=== PATIENT | female | born 1995 | race Two or more races ===

== ENCOUNTER 2019-10-09 10:46 | Emergency (ER) | payer SELFPAY ==
[~2019-10-09] VITALS: Ht 162.6 cm; Wt 120.7 kg
[2019-10-09 10:51] VITALS: BP 147/96
== END 2019-10-09 11:12 | disposition home or self-care (01) ==
LOC: ER 10:46
DX: I10 Essential (primary) hypertension (principal); F41.9 Anxiety disorder, unspecified

== ENCOUNTER 2021-06-11 08:18 | Emergency (ER) | payer MEDICAID, OTHER ==
[~2021-06-11] VITALS: Ht 160 cm; Wt 107.0 kg
[2021-06-11 08:19] VITALS: BP 125/60
== END 2021-06-11 09:44 | disposition home or self-care (01) ==
LOC: ER 08:18
DX: S30.0XXA Contusion of lower back and pelvis, initial encounter (principal); W18.39XA Other fall on same level, initial encounter; Y93.89 Activity, other specified; Y92.89 Other specified places as the place of occurrence of the external cause; Y99.8 Other external cause status
CPT/HCPCS: 72100; 81025

== ENCOUNTER 2021-07-28 11:22 | Emergency (ER) | payer MEDICAID ==
[~2021-07-28] VITALS: Ht 160 cm; Wt 111.6 kg
[2021-07-28 14:16] LABS: Hemoglobin 8.1 g/dL (12.2-16.2); Monocytes # (auto) 0.4 10 ^3/uL (0-1.3); Nucleated Red Blood Cells % 0.1 %; White Blood Cell 8.1 10^3/uL (4.4-10.8)
[2021-07-28 14:18] LABS: Basophils # (auto) 0.1 10 ^3/uL (0-0.2); Basophils % (auto) 0.7 % (0.0-2.0); Eosinophils # (auto) 0.2 10 ^3/uL (0-0.8); Hematocrit 26.3 % (36.0-46.0); Lymphocytes # (auto) 1.7 10 ^3/uL (0.4-5.4); Lymphocytes % (auto) 21.2 % (10.0-50.0); Mean Corpuscular Hemoglobin 19.2 pg (28.0-32.0); Mean Corpuscular Hgb Conc. 30.7 g/dL (32.0-36.0); Mean Corpuscular Volume 62.6 fL (80.0-100.0); Monocytes % (auto) 5.5 % (0.0-12.0); Neutrophils # (auto) 5.7 10 ^3/uL (1.6-8.6); Neutrophils % (auto) 70.6 % (37.0-80.0); Red Cell Distribution Width 18.1 % (11.8-14.3)
[2021-07-28 14:33] LABS: Albumin 3.6 g/dL (3.4-5.0); BUN/Creatinine Ratio 10.8; Calcium 9.2 mg/dL (8.5-10.1); Potassium 3.9 mmol/L (3.5-5.1)
[2021-07-28 14:35] LABS: Bilirubin, Total 0.5 mg/dL (0.2-1.0); Total Protein 8.5 g/dL (6.4-8.2)
[2021-07-28] MEDS ORDERED: FERR1TAB36 PO (15:01)
[2021-07-28 16:22] VITALS: BP 116/74
== END 2021-07-28 16:25 | disposition home or self-care (01) ==
LOC: ER 11:22
DX: R07.89 Other chest pain (principal); D64.9 Anemia, unspecified
CPT/HCPCS: 36415; 71046; 80053; 81025; 83880; 84484; 85025; 93005

== ENCOUNTER 2023-07-28 22:40 | Emergency (ER) | payer SELFPAY ==
[~2023-07-28] VITALS: Ht 162.6 cm; Wt 107.0 kg
[~2023-07-28 22:40] MED LIST: FERR1TAB36 PO
[2023-07-28 23:35] LABS: Urine Bacteria None Seen /hpf (None Seen)
[2023-07-29 00:03] LABS: Urine Blood Negative /uL (Negative); Urine Clarity Clear (Clear); Urine Color Light-Yellow (Yellow); Urine Mucus FEW (None Seen); Urine Protein, UAD Negative (Negative); Urine Urobilinogen Normal (Negative); Urine WBC 14 /hpf (0 - 5)
[2023-07-29 00:03] LABS: Basophils # (auto) 0.1 10 ^3/uL (0-0.2); Hemoglobin 11.3 g/dL (12.2-16.2); Lymphocytes # (auto) 2.8 10 ^3/uL (0.4-5.4); White Blood Cell 11.1 10^3/uL (4.4-10.8)
[2023-07-29 00:04] LABS: Basophils % (auto) 0.9 % (0.0-2.0); Eosinophils # (auto) 0.7 10 ^3/uL (0-0.8); Eosinophils % (auto) 6.6 % (0.0-7.0); Hematocrit 36.1 % (36.0-46.0); Mean Corpuscular Hemoglobin 22.7 pg (28.0-32.0); Mean Corpuscular Hgb Conc. 31.2 g/dL (32.0-36.0); Mean Corpuscular Volume 72.7 fL (80.0-100.0); Monocytes # (auto) 0.6 10 ^3/uL (0-1.3); Monocytes % (auto) 5.6 % (0.0-12.0); Neutrophils # (auto) 6.8 10 ^3/uL (1.6-8.6); Neutrophils % (auto) 61.9 % (37.0-80.0); Red Blood Cells 4.97 10^6/uL (4.0-5.20); Red Cell Distribution Width 17.4 % (11.8-14.3)
[2023-07-29 00:18] LABS: Alanine Aminotransferase 31 U/L (7-40); Albumin 4.4 g/dL (3.2-4.8); Alkaline Phosphatase 86 U/L (46-116); Anion Gap 9 (5-15); Aspartate Aminotransferase 22 U/L (13-40); BUN/Creatinine Ratio 10.4 (10.0-20.0); Blood Urea Nitrogen 7 mg/dL (9-23); Calcium 10.2 mg/dL (8.7-10.4); Carbon Dioxide 27 mmol/L (20-30); Chloride 105 mmol/L (98-107); Glucose 103 mg/dL (74-106); Lipase 31 U/L (12-53); Potassium 3.7 mmol/L (3.5-5.1); Sodium 141 mmol/L (136-145)
[2023-07-29 00:19] LABS: Bilirubin, Total 0.3 mg/dL (0.2-1.0); Total Protein 8.1 g/dL (5.7-8.2)
[2023-07-29 01:54] VITALS: TEMP 98.3
[2023-07-29] MEDS ORDERED: NITR-52 PO (02:14)
[2023-07-29 03:00] VITALS: BP 134/81; PULSE 95; RESP 17; O2SAT 98
== END 2023-07-29 03:05 | disposition home or self-care (01) ==
LOC: ER 22:40
DX: N39.0 Urinary tract infection, site not specified (principal); D64.9 Anemia, unspecified; R10.11 Right upper quadrant pain
CPT/HCPCS: 36415; 76705; 80053; 81001; 83605; 83690; 85025

== ENCOUNTER 2024-02-02 18:57 | Emergency (ER) | payer MEDICAID ==
[~2024-02-02] VITALS: Ht 160 cm; Wt 124.3 kg
[~2024-02-02 18:57] MED LIST changes: +NITR-52 PO
[2024-02-02] MEDS ORDERED: ACET500T58 PO (21:48)
[2024-02-02] MEDS ORDERED: PRED20TA2 PO (21:48)
[2024-02-02] MEDS ORDERED: AZIT-43 PO (21:48)
--- NOTE | 2024-02-02 21:48 | ED.PDOC ---
SOB-HPI HPI Comments 28-year-old female presents to ER with complaints of cough x2 days. Patient reports that she has been experiencing productive cough with yellow phlegm and on/off frontal headache x two days. States she has been around her grandmother who has recently diagnosed with pneumonia. Patient also reports mild "chest tightness" to substernal region of chest that is present with coughing only, denying any tightness/pain at rest. Denies use of medications for current symptoms. Patient presents to ER ambulatory on arrival, with steady gait, in no distress. Denies fever, body aches, chills, shortness of breath, hemoptysis, sore throat, nausea/vomiting or any further symptoms/complaints Chief Complaint: Cough Time Seen by MD: 18:59 Primary Care Provider: NONE Reviewed notes: Nurses Notes, Medications, Allergies Information Source: Patient Mode of Arrival: Ambulatory Past Medical History PAST MEDICAL HISTORY: Denies Surgical History: Denies all surgeries AUTOMATION TECH History: No Pertinent AUTOMATION TECH History LMP 01-30-24 Family History Family History: Reviewed,noncontributory to illness Social History Smoker: Non-Smoker Alcohol: Occasionally Drugs: Denies Drug Use Lives In: Home Constitutional: denies: chills, diaphoresis, fatigue, fever, malaise, sweats, weakness, others EENTM: denies: blurred vision, double vision, ear bleeding, ear discharge, ear drainage, ear pain, ear ringing, eye pain, eye redness, hearing loss, mouth pain, mouth swelling, nasal discharge, nose bleeding, nose congestion, nose pain, photophobia, tearing, throat pain, throat swelling, voice changes, others Respiratory: reports: others (As stated in HPI) Cardiovascular: denies: chest pain, dizzy spells, diaphoresis, Dyspnea on exertion, edema, irregular heart beat, left arm pain, lightheadedness, palpi tations, PND, syncope, others Gastrointestinal: denies: abdomen distended, abdominal pain, blood streaked bowels, constipated, diarrhea, dysphagia, difficulty swallowing, hematemesis, melena, nausea, poor appetite, poor fluid intake, rectal bleeding, rectal pain, vomiting, others Genitourinary: denies: abnormal vagina bleeding, burning, dyspareunia, dysuria, flank pain, frequency, hematuria, incontinence, pain, , vagina discharge, urgency, others Neurological: denies: dizziness, fainting, headache, left sided numbness, left sided weakness, numbness, paresthesia, pre-existing deficit, right sided numbness, right sided weakness, seizure, speech problems, tingling, tremors, weakness, others Musculoskeletal: denies: back pain, gout, joint pain, joint swelling, muscle pain, muscle stiffness, neck pain, others Integumetry: denies: bruises, change in color, change in hair/nails, dryness, laceration, lesions, lumps, rash, wounds, others Allergic/Immunocompromised: denies: Difficulty Healing, Frequent Infections, Hives, Itching, others Hematologic/Lymphatic: denies: anemia, blood clots, easy bleeding, easy bru ising, swollen glands, others Endocrine: denies: excessive hunger, excessive sweating, excessive thirst, e xcessive urination, flushing, intolerance to cold, intolerance to heat, unexplained weight gain, unexplained weight loss, others Psychiatric: denies: anxiety, bipolar disorder, depression, hopeless, panic disorder, schizophrenia, sleepless, suicidal, others Physical Exam General Appearance: No Apparent Distress, Obese HEENT: Normal ENT Inspection, PERRL/EOMI, Pharynx Normal, TMs Normal Neck: Full Range of Motion, Non-Tender, Normal Respiratory: Chest Non-Tender, Lungs Clear, No Accessory Muscle Use, No Respiratory Distress, Normal Breath Sounds Cardiovascular: No Murmur, No Gallop, Regular Rate/Rhythm Breast Exam: Deferred Gastrointestinal: NOT DONE Genitalia: Deferred Pelvic: Deferred Rectal: Deferred Extremities: Normal capillary refill, Normal range of motion Neurologic: Alert, fur sorter II-XII nml as Tested, No Motor Deficits, Normal Affect, Normal Mood, No Sensory Deficits Cerebellar Function: Normal Reflexes: Normal Skin: Dry, Normal Color, Warm Peripheral Pulses: 2+ Radial (R), 2+ Radial (L), 2+ Brachial (R), 2+ Brachial (L) Lymphatic: No Adenopathy Was a procedure done? Was a procedure done?: No Sedation Sedation?: No Differential Dx Differential Diagnosis: Pneumonia, Pulmonary Embolism, Respiratory Distress X-Ray, Labs, Meds, VS Vital Signs Date Time Temp Pulse Resp B/P (MAP) Pulse Ox O2 Delivery O2 Flow Rate FiO2 02/02/24 22:04 99 Room Air 0 02/02/24 21:57 97 14 127/77 (94) 97 02/02/24 19:06 97.6 114 20 149/93 (111) 99 02/02/24 19:02 20 99 Room Air* 0 21 PATIENT: JEMIMA NJ ACCT: [id number] UNIT: [id number] : 1995 LOC: ER ROOM / BED: / AGE / SEX: 28 / F ADM STATUS: REG ER SERVICE 48 ORDERING PHYSICIAN: DEO MONSON PROCEDURE(s): CXR2 - CHEST TWO VIEWS ROUTINE REASON: cough ORDER NUMBER(s): [id number], ACCESSION NUMBER(s): [id number] CHEST RADIOGRAPH Indication: cough Technique: Frontal and lateral view of the chest was obtained Comparison: CHEST TWO VIEWS ROUTINE on DOS: 07/28/21, CXR2 on DOS: 07/28/21 FINDINGS: Lines and Tubes: None Lungs: Clear Pleura: No effusion. No pneumothorax. Cardiomediastinal contours: Unremarkable Bones: Unremarkable IMPRESSION: No evidence of acute disease. ATED BY: KYLE TIWARI DO DICTATED DATE/TIME: 02/02/242222 SIGNED BY: KYLE TIWARI DO SIGNED DATE/TIME: 02/02/242222 CC: waiver sign Chest x-ray reviewed Rocephin 1 g IM ordered Solu-Medrol 125 mg IM ordered Advised to drink plenty of fluids Patient in no distress during ER visit/prior to discharge Advised to follow up with PCP in 1-2 days Patient verbalized understanding and agreeable with current plan of care Advised to return to ER immediately if symptoms worsen Images Reviewed?: Images reviewed and evaluated by me Time of 1ST Reevaluation: 21:20 Reevaluation 1ST: N/A Patient Education/Counseling: Diagnosis, Treatment, Prognosis, Need For Follow Up Family Education/Counseling: No Family Present Departure 1 Departure Time of Disposition: 21:42 Impression: Primary Impression: Upper respiratory infection Qualified Codes: J06.9 - Acute upper respiratory infection, unspecified Additional Impressions: Bronchospasm Morbid obesity with BMI of 45.0-49.9, adult Disposition: 01 HOME / SELF CARE / HOMELESS Condition: Stable e-Prescriptions Acetaminophen (Acetaminophen) 500 Mg Tab 500 MG PO Q4HPRN, #30 TAB 0 Refills Prov: DEO MONSON 02/02/24 Prednisone (Prednisone) 20 Mg Tab 20 MG PO BID for 5 Days, #10 TAB 0 Refills Prov: DEO MONSON 02/02/24 Azithromycin (Azithromycin) 250 Mg Tab 250 MG PO DAILY MDD 500 for 5 Days, #6 TAB 0 Refills 2 TABLETS ORALLY ON DAY ONE, THEN 1 TABLET ORALLY DAILY FOR 4 DAYS Prov: DEO MONSON 02/02/24 Discharged With: Self Critical Care Note Critical Care Time?: No Stability Stability form required: No Heart Score Heart Score: Heart Score Response (Comments) Value History N/A 0 EKG N/A 0 Age N/A 0 Risk Factors N/A 0 Troponin N/A 0 Total 0 DEO MONSON Feb 02, 2024 21:48
[2024-02-02 21:57] VITALS: BP 127/77; PULSE 97; RESP 14
[2024-02-02 22:04] VITALS: O2SAT 99
--- NOTE | 2024-02-02 22:26 | DVH ---
CHEST RADIOGRAPH Indication: cough Technique: Frontal and lateral view of the chest was obtained Comparison: CHEST TWO VIEWS ROUTINE on DOS: 07/28/21, CXR2 on DOS: 07/28/21 FINDINGS: Lines and Tubes: None Lungs: Clear Pleura: No effusion. No pneumothorax. Cardiomediastinal contours: Unremarkable Bones: Unremarkable IMPRESSION: No evidence of acute disease.
[2024-02-02] MEDS: methylPREDNISolone SOD SUCC 125 MG/2 ML VL IM ONE (22:35)
[2024-02-02] MEDS: cefTRIAXone SOD 1,000 MG VL IM ONE (22:36)
== END 2024-02-02 23:05 | disposition home or self-care (01) ==
LOC: ER 18:57
DX: J06.9 Acute upper respiratory infection, unspecified (principal); J98.01 Acute bronchospasm; E66.01 Morbid (severe) obesity due to excess calories; Z68.42 Body mass index [BMI] 45.0-49.9, adult
CPT/HCPCS: 71046; 96372; 99283; J0696; J2919

== ENCOUNTER 2024-07-15 09:59 | Emergency (ER) | payer MEDICAID ==
[~2024-07-15] VITALS: Ht 160 cm; Wt 127.0 kg
[~2024-07-15 09:59] MED LIST changes: +ACET500T58 PO; +AZIT-43 PO; +PRED20TA2 PO
--- NOTE | 2024-07-15 10:58 | ED.PDOC ---
SOB-HPI HPI Comments 28y F who presents to the ED for chief complaint of cough. Pt states she has been having cough for the past 3 weeks. Pt states she has been exacerbated cough in the PM for the past few days. Pt has history of bronchitis. Pt otherwise denies any other symptoms. Chief Complaint: Cough Time Seen by MD: 10:56 Primary Care Provider: NONE Reviewed notes: Medications, Allergies Mode of Arrival: Ambulatory Brought in by: self Past Medical History PAST MEDICAL HISTORY: Denies Surgical History: Denies all surgeries PATIENT COMPANION History: No Pertinent PATIENT COMPANION History Family History Family History: Reviewed,noncontributory to illness Social History Smoker: Non-Smoker Alcohol: Occasionally Drugs: Denies Drug Use Lives In: Home Constitutional: denies: chills, diaphoresis, fatigue, fever, malaise, sweats, weakness, others EENTM: denies: blurred vision, double vision, ear bleeding, ear discharge, ear drainage, ear pain, ear ringing, eye pain, eye redness, hearing loss, mouth pain , mouth swelling, nasal discharge, nose bleeding, nose congestion, nose pain, photophobia, tearing, throat pain, throat swelling, voice changes, others Respiratory: reports: cough; denies: hemoptysis, orthopnea, SOB at rest, shortness of breath, SOB with excertion, stridor, wheezing, others Cardiovascular: denies: chest pain, dizzy spells, diaphoresis, Dyspnea on exertion, edema, irregular heart beat, left arm pain, lightheadedness, palpitations, PND, syncope, others Gastrointestinal: denies: abdomen distended, abdominal pain, blood streaked bowels, constipated, diarrhea, dysphagia, difficulty swallowing, hematemesis, melena, nausea, poor appetite, poor fluid intake, rectal bleeding, rectal pain, vomiting, others Genitourinary: denies: abnormal vagina bleeding, burning, dyspareunia, dysuria, flank pain, frequency, hematuria, incontinence, pain, , vagina discharge, urgency, others Neurological: denies: dizziness, fainting, headache, left sided numbness, left sided weakness, numbness, paresthesia, pre-existing deficit, right sided numbness, right sided weakness, seizure, speech problems, tingling, tremors, weakness, others Musculoskeletal: denies: back pain, gout, joint pain, joint swelling, muscle pain, muscle stiffness, neck pain, others Integumetry: denies: bruises, change in color, change in hair/nails, dryness, laceration, lesions, lumps, rash, wounds, others Allergic/Immunocompromised: denies: Difficulty Healing, Frequent Infections, Hives, Itching, others Hematologic/Lymphatic: denies: anemia, blood clots, easy bleeding, easy bruising, swollen glands, others Endocrine: denies: excessive hunger, excessive sweating, excessive thirst, excessive urination, flushing, intolerance to cold, intolerance to heat, unexplained weight gain, unexplained weight loss, others Psychiatric: denies: anxiety, bipolar disorder, depression, hopeless, panic disorder, schizophrenia, sleepless, suicidal, others All Other Systems: Reviewed and Negative Physical Exam General Appearance: No Apparent Distress, Normal HEENT: Normal ENT Inspection, Pharynx Normal, TMs Normal Neck: Full Range of Motion, Non-Tender, Normal, Normal Inspection Respiratory: Chest Non-Tender, Lungs Clear, No Accessory Muscle Use, No Respiratory Distress, Normal Breath Sounds Cardiovascular: No Edema, No JVD, No Murmur, No Gallop, Normal Peripheral Pulses, Regular Rate/Rhythm Breast Exam: Deferred Gastrointestinal: No Organomegaly, Non Tender, No Pulsatile Mass, Normal Bowel Sounds, Soft Genitalia: Deferred Pelvic: Deferred Rectal: Deferred Extremities: No calf tenderness, Normal capillary refill, Normal inspection, Normal range of motion, Non-tender, No pedal edema Musculoskeletal : Apperance: Normal Neurologic: Alert, client services representative II-XII nml as Tested, No Motor Deficits, Normal Affect, Normal Mood, No Sensory Deficits Cerebellar Function: Normal Reflexes: Normal Skin: Dry, Normal Color, Warm Lymphatic: No Adenopathy Was a procedure done? Was a procedure done?: No Differential Dx Differential Diagnosis: Anxiety, Asthma, Bronchitis, CHF, COPD, Panic Attack, Pneumonia, Pneumothorax, Pharyngitis, URI Comments URI X-Ray, Labs, Meds, VS Vital Signs Date Time Temp Pulse Resp B/P (MAP) Pulse Ox O2 Delivery O2 Flow Rate FiO2 07/15/24 10:12 20 97 Room Air* 0 21 07/15/24 10:12 98.0 90 20 123/70 (87) 97 98.0 Time of 1ST Reevaluation: 11:30 Reevaluation 1ST: Unchanged Patient Education/Counseling: Diagnosis, Treatment, Prognosis, Need For Follow Up Family Education/Counseling: No Family Present Additional Information Previous visits reviewed: The following tests were ordered, and results were reviewed by me: chest x-ray Additional Information was gathered from interviewing the following independent historians: none I reviewed and agreed with the following test results read by other providers: radiologist I discussed treatment and results with medical personnel and: patient Comprehensive systems review obtained and negative except for what is stated in the HPI. Departure 1 Departure Time of Disposition: 12:12 Impression: Primary Impression: Bronchitis Disposition: HOME / SELF CARE / HOMELESS Condition: Good e-Prescriptions Benzonatate (Benzonatate) 200 Mg Cap 1 CAP PO TID, #30 CAP Prov: MARTHA GALE MD 07/15/24 Albuterol Sulfate (Proair Respiclick) 108 Mcg/Act Aer 108 MCG IN Q4HP PRN, #1 AER Prov: MARTHA GALE MD 07/15/24 Discharged With: Self Critical Care Note Critical Care Time?: No Stability Stability form required: No Heart Score Heart Score: Heart Score Response (Comments) Value History N/A 0 EKG N/A 0 Age N/A 0 Risk Factors N/A 0 Troponin N/A 0 Total 0 I personally scribed for MARTHA GALE MD ([email or web address] on 07/15/24 at 10:58. Electronically submitted by Elle Vaughan ([email or web address]). MARTHA GALE MD July 15, 2024 10:58
--- NOTE | 2024-07-15 12:05 | DVH ---
CHEST RADIOGRAPH Indication: COUGH Technique: Single frontal view of the chest was obtained COMPARISON: None FINDINGS: Lines and Tubes: None Lungs: Clear Pleura: No effusion. No pneumothorax. Cardiomediastinal contours: Unremarkable Bones: Unremarkable IMPRESSION: 1. No acute disease.
[2024-07-15] MEDS ORDERED: BENZ200C64 PO (12:12)
[2024-07-15] MEDS ORDERED: ALBU1AER4 IN (12:12)
[2024-07-15 12:16] VITALS: BP 104/48; PULSE 100; RESP 20; TEMP 98; O2SAT 96
== END 2024-07-15 12:23 | disposition home or self-care (01) ==
LOC: ER 09:59
DX: J40 Bronchitis, not specified as acute or chronic (principal); F10.90 Alcohol use, unspecified, uncomplicated; Y90.9 Presence of alcohol in blood, level not specified
CPT/HCPCS: 71045

== ENCOUNTER 2024-10-17 15:50 | Emergency (ER) | payer MEDICAID ==
[~2024-10-17] VITALS: Ht 160 cm; Wt 129.6 kg
[~2024-10-17 15:50] MED LIST changes: +ALBU1AER4 IN; +BENZ200C64 PO
[2024-10-17 15:52] VITALS: BP 137/70; RESP 18; TEMP 97.5; O2SAT 99
[2024-10-17 15:55] VITALS: PULSE 97
--- NOTE | 2024-10-17 16:29 | ED.PDOC ---
HPI Comments This is a 29 year old female presenting to the ED with chief complaint of chest pain. Patient reports that she has been experiencing left sided chest pain since yesterday morning, feeling like a sharp sensation. Patient relays that she feels worsening pain with movement and she feels as if she strained the muscle in her chest when sleeping last night due to tossing/turning all night. Patient denies any SOB, dizziness, abdominal pain, headache, N/V, numbness, or weakness. Chief Complaint: Chest Pain Time Seen by MD: 16:27 Primary Care Provider: NONE Reviewed Notes: Nurses Notes, Medications, Allergies Allergies: Coded Allergies: NO KNOWN ALLERGIES (Unverified , 10/09/19) Home Meds Active Scripts Benzonatate (Benzonatate) 200 Mg Cap, 1 CAP PO TID, #30 CAP Prov:MARTHA GALE MD 07/15/24 Albuterol Sulfate (Proair Respiclick) 108 Mcg/Act Aer, 108 MCG IN Q4HP PRN, #1 AER Prov:MARTHA GALE MD 07/15/24 Acetaminophen (Acetaminophen) 500 Mg Tab, 500 MG PO Q4HPRN, #30 TAB 0 Refills Prov:DEO MONSON 02/02/24 Prednisone (Prednisone) 20 Mg Tab, 20 MG PO BID for 5 Days, #10 TAB 0 Refills Prov:DEO MONSON 02/02/24 Azithromycin (Azithromycin) 250 Mg Tab, 250 MG PO DAILY MDD 500 for 5 Days, #6 TAB 0 Refills 2 TABLETS ORALLY ON DAY ONE, THEN 1 TABLET ORALLY DAILY FOR 4 DAYS Prov:DEO MONSON 02/02/24 Nitrofurantoin (Nitrofurantoin) 100 Mg Cap, 1 CAP PO QID for 5 Days, #20 CAP Prov:EDUARD ESQUIVEL PAC 07/29/23 Ferrous Sulfate (Iron (Ferrous Sulfate)) 50 Mg Tab, 50 MG PO QDAC for 20 Days, #20 TAB Prov:CHRISTEL VOSS MD 07/28/21 Information Source: Patient Mode of Arrival: Ambulatory Severity: Moderate Timing: Hours Duration: Since onset Prehospital treatment: None Location: Chest (L) Radiation: No Radiation Quality: Sharp Onset: At Rest Cardiac Risk Factors: Family History PE Risk Factors: None History of: None Past Medical History PAST MEDICAL HISTORY: Anemia Surgical History: Denies all surgeries LICENSED SALES PRODUCER History: No Pertinent LICENSED SALES PRODUCER History Family History Family History: Reviewed,noncontributory to illness, Family hx of heart otis, Family hx of HTN Social History Smoker: Non-Smoker Alcohol: Occasionally Drugs: Marijuana Lives In: Home Constitutional: denies: chills, diaphoresis, fatigue, fever, malaise, sweats, weakness, others EENTM: denies: blurred vision, double vision, ear bleeding, ear discharge, ear drainage, ear pain, ear ringing, eye pain, eye redness, hearing loss, mouth pain, mouth swelling, nasal discharge, nose bleeding, nose congestion, nose pain, photophobia, tearing, throat pain, throat swelling, voice changes, others Respiratory: denies: cough, hemoptysis, orthopnea, SOB at rest, shortness of breath, SOB with excertion, stridor, wheezing, others Cardiovascular: reports: chest pain; denies: dizzy spells, diaphoresis, Dyspnea on exertion, edema, irregular heart beat, left arm pain, lightheadedness, palpitations, PND, syncope, others Gastrointestinal: denies: abdomen distended, abdominal pain, blood streaked bowels, constipated, diarrhea, dysphagia, difficulty swallowing, hematemesis, melena, nausea, poor appetite, poor fluid intake, rectal bleeding, rectal pain, vomiting, others Genitourinary: denies: abnormal vagina bleeding, burning, dyspareunia, dysuria, flank pain, frequency, hematuria, incontinence, pain, , vagina discharge, urgency, others Neurological: denies: dizziness, fainting, headache, left sided numbness, left sided weakness, numbness, paresthesia, pre-existing deficit, right sided numbness, right sided weakness, seizure, speech problems, tingling, tremors, weakness, others Musculoskeletal: denies: back pain, gout, joint pain, joint swelling, muscle pain, muscle stiffness, neck pain, others Integumetry: denies: bruises, change in color, change in hair/nails, dryness, laceration, lesions, lumps, rash, wounds, others Allergic/Immunocompromised: denies: Difficulty Healing, Frequent Infections, Hives, Itching, others Hematologic/Lymphatic: denies: anemia, blood clots, easy bleeding, easy bruising, swollen glands, others Endocrine: denies: excessive hunger, excessive sweating, excessive thirst, excessive urination, flushing, intolerance to cold, intolerance to heat, unexplained weight gain, unexplained weight loss, others Psychiatric: denies: anxiety, bipolar disorder, depression, hopeless, panic disorder, schizophrenia, sleepless, suicidal, others All Other Systems: Reviewed and Negative Physical Exam General Appearance: No Apparent Distress HEENT: Normal ENT Inspection, Pharynx Normal, TMs Normal Neck: Full Range of Motion, Non-Tender, Normal, Normal Inspection Respiratory: Lungs Clear, No Accessory Muscle Use, No Respiratory Distress, Normal Breath Sounds, Other (Tenderness to the anterior chest region) Cardiovascular: No Edema, No JVD, No Murmur, No Gallop, Normal Peripheral Pulses, Regular Rate/Rhythm Breast Exam: Deferred Gastrointestinal: No Organomegaly, Non Tender, No Pulsatile Mass, Normal Bowel Sounds, Soft Genitalia: Deferred Pelvic: Deferred Rectal: Deferred Extremities: No calf tenderness, Normal capillary refill, Normal inspection, Normal range of motion, Non-tender, No pedal edema Musculoskeletal : Apperance: Normal Neurologic: Alert, painter touch up II-XII nml as Tested, No Motor Deficits, Normal Affect, Normal Mood, No Sensory Deficits Cerebellar Function: Normal Reflexes: Normal Skin: Dry, Normal Color, Warm Lymphatic: No Adenopathy Was a procedure done? Was a procedure done?: No CP Differential Dx Differential Diagnosis: Angina, [place], Pulmonary Embolus Differential Diagnosis: CHF Differential Diagnosis: Pericarditis X-Ray, Labs, Meds, VS Vital Signs Date Time Temp Pulse Resp B/P (MAP) Pulse Ox O2 Delivery O2 Flow Rate FiO2 10/17/24 15:55 97 10/17/24 15:52 97.5 97 18 137/70 99 97.5 Lab Test 10/17/24 16:49 10/17/24 16:01 Range/Units Troponin I High Sensitivity Pending < 3 L </=34 ng/L White Blood Count 9.7 4.4-10.8 10^3/uL Red Blood Count 5.28 H 4.0-5.20 10^6/uL Hemoglobin 13.0 12.2-16.2 g/dL Hematocrit 40.1 36.0-46.0 % Mean Corpuscular Volume 75.8 L 80.0-100.0 fL Mean Corpuscular Hemoglobin 24.7 L 28.0-32.0 pg Mean Corpuscular Hemoglobin Concent 32.5 32.0-36.0 g/dL Red Cell Distribution Width 16.0 H 11.8-14.3 % Platelet Count 257 140-450 10^3/uL Mean Platelet Volume 9.1 6.9-10.8 fL Neutrophils (%) (Auto) 56.8 37.0-80.0 % Lymphocytes (%) (Auto) 27.2 10.0-50.0 % Monocytes (%) (Auto) 6.7 0.0-12.0 % Eosinophils (%) (Auto) 8.6 H 0.0-7.0 % Basophils (%) (Auto) 0.7 0.0-2.0 % Neutrophils # (Auto) 5.5 1.6-8.6 10 ^3/uL Lymphocytes # (Auto) 2.6 0.4-5.4 10 ^3/uL Monocytes # (Auto) 0.7 0-1.3 10 ^3/uL Eosinophils # (Auto) 0.8 0-0.8 10 ^3/uL Basophils # (Auto) 0.1 0-0.2 10 ^3/uL Nucleated Red Blood Cells 0.1 % Sodium Level 139 136-145 mmol/L Potassium Level 3.7 3.5-5.1 mmol/L Chloride Level 104 98-107 mmol/L Carbon Dioxide Level 26 20-31 mmol/L Anion Gap 9 5-15 Blood Urea Nitrogen 9 9-23 mg/dL Creatinine 0.65 0.550-1.02 mg/dL Glomerular Filtration Rate Calc 121 >90 mL/min BUN/Creatinine Ratio 13.8 10.0-20.0 Serum Glucose Pending Calcium Level 9.4 8.7-10.4 mg/dL Chest XR indicates: No acute cardiopulmonary disease. The patient's CBC is within normal limits The chemistry panel is within normal limits. The patient did have some tenderness to palpation on her chest so at this time we are discharging the patient with a diagnosis of musculoskeletal chest pain The patient will return to the emergency department's the condition worsens The patient understands and agrees with the management. The patient is told to take ibuprofen for the pain Images Reviewed?: Images reviewed and evaluated by me Time of 1ST Reevaluation: 17:10 Reevaluation 1ST: Improved Patient Education/Counseling: Diagnosis, Treatment, Prognosis, Need For Follow Up Family Education/Counseling: No Family Present SEPSIS Sepsis Screen Date sepsis recognized/suspect: Oct 17, 2024 Time Sepsis recognized/suspect: 1552 Recent Procedure: No On Antibiotic Therapy: No Respiratory Rate >20: No Heart Rate >90: Yes Temp<36 C (96.8 F) or >38.3 C: No SBP <90 or MAP <65 mmHG: No New Acute Mental Status Change: No Is the patient on CPAP, BIPAP,: No Physician Orders Electrocardigram (10/17/24 15:58) Troponin-I Hs (10/17/24 16:58) Troponin-I Hs (10/17/24 18:58) Electrocardigram (10/17/24 16:58) Electrocardigram (10/17/24 18:58) Chest Two Views Routine (10/17/24 16:23) Basic Metabolic Panel (10/17/24 16:23) Vital Signs Date Time Temp Pulse Resp B/P (MAP) Pulse Ox O2 Delivery O2 Flow Rate FiO2 10/17/24 15:55 97 10/17/24 15:52 97.5 97 18 137/70 99 97.5 Laboratory Tests Test 10/17/24 16:01 White Blood Count 9.7 10^3/uL (4.4-10.8) Departure 1 Departure Time of Disposition: 17:10 Impression: Primary Impression: Costochondritis Disposition: 01 HOME / SELF CARE / HOMELESS Condition: Fair Discharged With: Self Critical Care Note Critical Care Time?: No Stability Stability form required: No Heart Score Heart Score: Heart Score Response (Comments) Value History Slightly Suspicious 0 EKG Normal 0 Age <45 0 Risk Factors No known risk factors 0 Troponin Normal limit 0 Total 0 I personally scribed for CHRISTEL VOSS MD ([email or web address]) on 10/17/24 at 16:29. Electronically submitted by Tereso Field ([email or web address]). I personally scribed for CHRISTEL VOSS MD ([email or web address]) on 10/17/24 at 17:02. Electronically submitted by Tereso Field ([email or web address]). CHRISTEL VOSS MD Oct 17, 2024 16:29
[2024-10-17 16:49] LABS: Chloride 104 mmol/L (98-107); Potassium 3.7 mmol/L (3.5-5.1); Sodium 139 mmol/L (136-145)
[2024-10-17 16:50] LABS: Anion Gap 9 (5-15); Calcium 9.4 mg/dL (8.7-10.4); Carbon Dioxide 26 mmol/L (20-31); Hemoglobin 13.0 g/dL (12.2-16.2); Nucleated Red Blood Cells % 0.1 %
[2024-10-17 16:52] LABS: Hematocrit 40.1 % (36.0-46.0); Mean Corpuscular Hemoglobin 24.7 pg (28.0-32.0); Mean Corpuscular Volume 75.8 fL (80.0-100.0)
[2024-10-17 16:55] LABS: BUN/Creatinine Ratio 13.8 (10.0-20.0); Blood Urea Nitrogen 9 mg/dL (9-23)
--- NOTE | 2024-10-17 16:58 | DVH ---
XY CHEST TWO VIEWS ROUTINE CLINICAL HISTORY: pain COMPARISON: XY CHEST PORTABLE on DOS: 07/15/24, XY CHEST TWO VIEWS ROUTINE on DOS: 02/02/24, CHEST TWO VIEWS ROUTINE on DOS: 07/28/21 TECHNIQUE: Frontal and lateral view of the chest was obtained FINDINGS: Lines and Tubes: None Lungs: No focal consolidation. Pleura: No effusion. No pneumothorax. Cardiomediastinal contours: Unremarkable Bones: No acute osseous abnormality. IMPRESSION: No acute cardiopulmonary disease.
[2024-10-17 17:06] LABS: Glucose 76 mg/dL (74-106)
--- NOTE | 2024-10-18 12:17 | ECG ---
[facility] Test Date: 2024-10-17 Test Time: 15:55:11 Pat Name: JEMIMA [place] Department: ED Room: Gender: F [employer] Advisor: NIKOS : 1995 Requested By: CHRISTEL VOSS Order Number: [id number] Reading MD: Danis Hill Measurements Intervals [place] Rate: 97 P: 31 TN: 135 QRS: 16 QRSD: 96 T: 31 QT: 352 QTc: 447 Interpretive Statements Sinus rhythm RSR' in V1 or V2, probably normal variant Electronically Signed On 10-19-2024 17:01:19 PDT by Danis Hill Please click the below link to view image of tracing.
== END 2024-10-17 17:38 | disposition home or self-care (01) ==
LOC: ER 15:50
DX: M94.0 Chondrocostal junction syndrome [Tietze] (principal); F12.90 Cannabis use, unspecified, uncomplicated; F10.90 Alcohol use, unspecified, uncomplicated; Z79.52 Long term (current) use of systemic steroids; Z79.899 Other long term (current) drug therapy; Y90.9 Presence of alcohol in blood, level not specified
CPT/HCPCS: 36415; 71046; 80048; 84484; 85025; 93005

== ENCOUNTER 2025-01-05 23:42 | Emergency (ER) | payer MEDICAID ==
[~2025-01-05] VITALS: Ht 162.6 cm; Wt 113.6 kg
--- NOTE | 2025-01-06 00:52 | DVH ---
CLINICAL INDICATION: S/P FALL, pain TECHNIQUE: XYXY R ANKLE 3 VIEW Comparison: None FINDINGS/IMPRESSION: : Probable nondisplaced fracture at the base of the 5th metatarsal. Please correlate with the site of pain and consider dedicated foot views. Otherwise no definite fracture. Ankle mortise is congruent and talar dome intact.
[2025-01-06] MEDS ORDERED: IBUP-1456 PO (02:26)
--- NOTE | 2025-01-06 02:26 | ED.PDOC ---
Back pain HPI HPI Comments PT CAME TO THE ER WITH CC OF PAIN TO THE RIGHT ANKLE POST FALL, PT STATES THAT SHE TRIPPED AND FELL IN A PARKING LOT AND HER RIGHT ANKLE TWISTED. +1 SWELLING. PT IS A&OX4 RR EVEN AND REGULAR NO DISTRESS NOTED. PT DENIES ANY OTHER SYMPTOMS AT THIS TIME Chief Complaint: Lower Extremity Time Seen by MD: 23:48 Primary Care Provider: NONE Reviewed Notes: Nurses Notes, Medications, Allergies Allergies: Coded Allergies: NO KNOWN ALLERGIES (Unverified , 10/09/19) Home Meds Active Scripts Ibuprofen (Ibuprofen) 800 Mg Tab, 800 MG PO Q8HP PRN for 6 Days, #18 TAB Prov:LISA CROWE [employer] 01/06/25 Benzonatate (Benzonatate) 200 Mg Cap, 1 CAP PO TID, #30 CAP Prov:MARTHA GALE MD 07/15/24 Albuterol Sulfate (Proair Respiclick) 108 Mcg/Act Aer, 108 MCG IN Q4HP PRN, #1 AER Prov:MARTHA GALE MD 07/15/24 Acetaminophen (Acetaminophen) 500 Mg Tab, 500 MG PO Q4HPRN, #30 TAB 0 Refills Prov:DEO MONSON 02/02/24 Prednisone (Prednisone) 20 Mg Tab, 20 MG PO BID for 5 Days, #10 TAB 0 Refills Prov:DEO MONSON 02/02/24 Azithromycin (Azithromycin) 250 Mg Tab, 250 MG PO DAILY MDD 500 for 5 Days, #6 TAB 0 Refills 2 TABLETS ORALLY ON DAY ONE, THEN 1 TABLET ORALLY DAILY FOR 4 DAYS Prov:DEO MONSON 02/02/24 Nitrofurantoin (Nitrofurantoin) 100 Mg Cap, 1 CAP PO QID for 5 Days, #20 CAP Prov:EDUARD ESQUIVEL PAC 07/29/23 Ferrous Sulfate (Iron (Ferrous Sulfate)) 50 Mg Tab, 50 MG PO QDAC for 20 Days, #20 TAB Prov:CHRISTEL VOSS MD 07/28/21 Information Source: Patient Mode of Arrival: Wheelchair Past Medical History PAST MEDICAL HISTORY: Anemia Surgical History: Denies all surgeries [employer] W[employer] 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 History Family History Family History: Reviewed,noncontributory to illness, Family hx of heart otis, Family hx of HTN Social History Smoker: Non-Smoker Alcohol: Occasionally Drugs: Marijuana Lives In: Home All Other Systems: Reviewed and Negative (see hpi) Physical Exam General Appearance: No Apparent Distress, Normal HEENT: Pharynx Normal Neck: Full Range of Motion, Non-Tender Respiratory: Lungs Clear, No Respiratory Distress, Normal Breath Sounds Cardiovascular: No Murmur, Normal Peripheral Pulses, Regular Rate/Rhythm Breast Exam: Deferred Gastrointestinal: Non Tender, Soft Genitalia: Deferred Pelvic: Deferred Rectal: Deferred Extremities: Normal capillary refill, Normal range of motion Musculoskeletal : Location: Right Extremity Location: Ankle (Moderate edema lateral aspect. Tenderness palpated over proximal 5th metatarsal. Strength sensory motion intact positive pedal pulse) Apperance: Normal Neurologic: Alert, No Motor Deficits, Normal Affect, Normal Mood, No Sensory Deficits Cerebellar Function: Normal Reflexes: NOT DONE Skin: Dry, Normal Color, Warm Lymphatic: No Adenopathy Was a procedure done? Was a procedure done?: No Back Pain Differential Dx Differential Diagnosis: Fracture, Musculoskeletal Pain, Strain X-Ray, Labs, Meds, VS Vital Signs Date Time Temp Pulse Resp B/P (MAP) Pulse Ox O2 Delivery O2 Flow Rate FiO2 01/06/25 02:34 98.3 87 19 133/87 (102) 97 98.3 01/06/25 02:34 87 19 97 Room Air 01/05/25 23:56 97.4 98 20 117/67 97 97.4 X-Ray, Labs, Meds, VS Comment Right ankle x-ray reviewed no acute fractures or dislocations about the ankle. Noted probable fracture of the base of the 5th metatarsal. Patient does have moderate tenderness on palpation on exam. Fractured. Patient placed in posterior leg splint. Crutches provided. Script trial of NSAID. Advised on rice. Advised to follow up with her PCP for referral to ortho ER return precautions given patient indicates understanding agrees with discharge plan of care. Images Reviewed?: Images reviewed and evaluated by me Time of 1ST Reevaluation: 23:48 Reevaluation 1ST: Unchanged Time of 2ND Reevaluation: 02:21 Reevaluation 2ND: Improved Patient Education/Counseling: Diagnosis, Treatment, Need For Follow Up Family Education/Counseling: No Family Present SEPSIS Sepsis Screen Date sepsis recognized/suspect: Jan 06, 2025 Time Sepsis recognized/suspect: 2249 Recent Procedure: No On Antibiotic Therapy: No Respiratory Rate >20: No Heart Rate >90: Yes Temp<36 C (96.8 F) or >38.3 C: No SBP <90 or MAP <65 mmHG: No New Acute Mental Status Change: No Is the patient on CPAP, BIPAP,: No Physician Orders R Ankle 3 View (01/06/25 00:11) Vital Signs Date Time Temp Pulse Resp B/P (MAP) Pulse Ox O2 Delivery O2 Flow Rate FiO2 01/06/25 02:34 98.3 87 19 133/87 (102) 97 98.3 01/06/25 02:34 87 19 97 Room Air 01/05/25 23:56 97.4 98 20 117/67 97 97.4 Departure 1 Departure Time of Disposition: 02:21 Impression: Primary Impression: Fracture of fifth metatarsal bone of right foot Qualified Codes: S92.354A - Nondisplaced fracture of fifth metatarsal bone, right foot, initial encounter for closed fracture Additional Impression: Ankle sprain Qualified Codes: S93.401A - Sprain of unspecified ligament of right ankle, initial encounter Disposition: HOME / SELF CARE / HOMELESS Condition: Stable e-Prescriptions Ibuprofen (Ibuprofen) 800 Mg Tab 800 MG PO Q8HP PRN for 6 Days, #18 TAB Prov: LISA CROWE 01/06/25 Discharged With: Self Critical Care Note Critical Care Time?: No Stability Stability form required: LISA Sullivan Jan 06, 2025 02:26
[2025-01-06 02:34] VITALS: BP 133/87; PULSE 87; RESP 19; TEMP 98.3; O2SAT 97
== END 2025-01-06 02:43 | disposition home or self-care (01) ==
LOC: ER 23:42
DX: S92.354A Nondisplaced fracture of fifth metatarsal bone, right foot, initial encounter for closed fracture (principal); S93.401A Sprain of unspecified ligament of right ankle, initial encounter; W01.0XXA Fall on same level from slipping, tripping and stumbling without subsequent striking against object, initial encounter; Y92.481 Parking lot as the place of occurrence of the external cause; Y93.89 Activity, other specified; Y99.8 Other external cause status
CPT/HCPCS: 29515; 73610